=== PATIENT | male | born 1985 | race Caucasian/White ===

== ENCOUNTER → 2017-05-14 | Outpatient (REF) | payer OTHER ==
[~2017-05-14] MED LIST: /DULO30CA OR; EXCETAB OR; IBUP600T OR; TRAM50TA2 OR; ZOMI5TAB OR
== END ==
LOC: M SFHCLERA 12:20
PROVIDERS: ATTEND Nurse Practitioner Family
DX: R50.9 Fever, unspecified (principal)

== ENCOUNTER 2018-02-03 07:14 | Emergency (ER) | payer OTHER | END 2018-02-03 08:44 | disposition home or self-care (01) | LOC: M ED 07:14 | DX: S29.012A Strain of muscle and tendon of back wall of thorax, initial encounter (principal); X50.0XXA Overexertion from strenuous movement or load, initial encounter; Y92.89 Other specified places as the place of occurrence of the external cause; Z88.6 Allergy status to analgesic agent | CPT/HCPCS: 99283 ==

== ENCOUNTER → 2019-02-28 | Outpatient (REF) | payer OTHER ==
[~2019-02-28] MED LIST changes: -/DULO30CA OR; +ACET-683 PO; +CYCL10TA PO; +CYMB1CAP5 OR; +NAPR-837 PO
[2019-02-28 13:07] LABS: SEMEN APPEARANCE OPAQUE (OPAQUE); SEMEN VISCOSITY LIQUID (LIQUID); WBC CONCENTRATION <=1 M/ml (<=1 M/ml)
== END ==
LOC: M LAB REF 10:58
PROVIDERS: ATTEND Family Medicine
DX: Z98.52 Vasectomy status (principal)

== ENCOUNTER → 2020-05-31 | Outpatient (CLI) | payer OTHER ==
[~2020-05-31] MED LIST changes: +CYCL-707 PO; -CYCL10TA PO; +EXCETAB33 PO; +GABA-1171 PO; +HYDR-3713 PO; +MELO15TA28 PO; +QUET5TAB PO; +THERTAB52 PO; +VITA500C24 PO
== END ==
LOC: M LABSMTC 10:43
PROVIDERS: ATTEND Anesthesiology
DX: Z11.59 Encounter for screening for other viral diseases (principal)

== ENCOUNTER → 2020-06-05 | Day surgery (SDC) | payer OTHER ==
[~2020-06-05] VITALS: Ht 177.8 cm; Wt 113.4 kg
[~2020-06-05] MED LIST changes: +BUPIVACAINE HCL 0.5% 30 ML VIAL As Ordered ONE; +KETAMINE HCL 200 MG/20 ML VIAL As Ordered ONE; +KETOROLAC 60MG 2ML VIAL As Ordered ONE; +LIDOCAINE 1% MDV 20ML VIAL As Ordered ONE; +LIDOCAINE 2% 100MG/5ML SDV (FOR ANES.) As Ordered ONE; +LR 1,000 ML IV ONE; +MIDAZOLAM INJ 2MG/2ML VIAL (J2250 PER 1MG) As Ordered ONE; +ONDANSETRON 4MG/2ML VIAL As Ordered ONE; +ceFAZolin SOD 2 GM in IV 1 EA IV ONE; +dexameTHASONE 4 MG/ML 1ML VIAL (J1100 PER 1MG) As Ordered ONE; +fentaNYL 100 MCG/2 ML INJECTION (J3010) As Ordered ONE; +propofoL 200 MG/20 ML VIAL As Ordered ONE
--- NOTE | 2020-06-05 10:05 | RO ---
OPERATIVE NOTE DATE OF OPERATION: 06/05/2020 PREOPERATIVE DIAGNOSIS: Bilateral plantar fasciitis. POSTOPERATIVE DIAGNOSIS: Bilateral plantar fasciitis. PROCEDURE: Bilateral endoscopic plantar fascia release. SURGEON: Dusty Mai DPM. SENIOR MEDICAL WRITER: None. ANESTHESIA: Monitored anesthesia care. Preoperative injection of 30 mL of 1:1 mix of 1% Lidocaine plain and 0.5% Marcaine plain. ESTIMATED BLOOD LOSS: Minimal. MATERIALS: 4-0 nylon. INJECTABLES: 1 mL of Decadron 4 mg/mL per side. COMPLICATIONS: None. CONDITION: Stable. INDICATIONS FOR PROCEDURE: Robin Esposito is a 35-year-old male with chronic plantar fasciitis. He has undergone numerous conservative treatments without resolution of his pain. He presented today for surgical correction. The patient, side, and site were identified and marked in the preoperative area. Consent was reviewed and obtained. The risks, complications, and alternatives to the procedure were explained to the patient in detail and all questions were answered. DESCRIPTION OF PROCEDURE: The patient was brought to the operating room and placed on the operating room table in supine position. Monitored anesthesia care was delivered by the anesthesia team. A preop injection of 30 mL of 1:1 mixture of 1% Lidocaine plain and 0.5% Marcaine plain were injected to the right and left foot. Tourniquet was applied to both ankles. The feet were prepped and draped in the normal sterile fashion. The tourniquet was inflated to 250 mmHg. Medial stab incision was made at the medial heel near the plantar fascia insertion. Hemostat used to find the inferior margin of the plantar fascia. The cannula and trocar were inserted through the medial portal and an exit portal was made at the lateral heel. The trocar was removed. The camera was inserted through the lateral portal through the cannula. The plantar fascia was observed. Using the straight blade, the plantar fascia was released along the medial two-thirds leaving the lateral one-third intact. Camera was removed. The site was irrigated with normal saline. The cannula was removed, and the incision was repaired using 4-0 nylon. Sterile dressings were applied. The tourniquet was deflated. The patient was brought the PACU with vital signs stable and neurovascular status intact. Weightbearing as tolerated. Follow-up in the office next week.
[2020-06-05 10:15] VITALS: BP 125/82
== END | disposition home or self-care (01) ==
LOC: M SDC 07:13
PROVIDERS: ATTEND Podiatrist Foot & Ankle Surgery
DX: M72.2 Plantar fascial fibromatosis (principal); F43.10 Post-traumatic stress disorder, unspecified; G43.909 Migraine, unspecified, not intractable, without status migrainosus; K57.32 Diverticulitis of large intestine without perforation or abscess without bleeding; K21.9 Gastro-esophageal reflux disease without esophagitis; M19.90 Unspecified osteoarthritis, unspecified site; M54.9 Dorsalgia, unspecified; Z87.81 Personal history of (healed) traumatic fracture
CPT/HCPCS: 29893; J0690; J1100; J1885; J2250; J2405; J3010

== ENCOUNTER → 2020-08-23 | Outpatient (CLI) | payer OTHER ==
[~2020-08-23] MED LIST changes: +ACET1TAB55 PO; -BUPIVACAINE HCL 0.5% 30 ML VIAL As Ordered ONE; +IBUP80TA PO; -KETAMINE HCL 200 MG/20 ML VIAL As Ordered ONE; -KETOROLAC 60MG 2ML VIAL As Ordered ONE; -LIDOCAINE 1% MDV 20ML VIAL As Ordered ONE; -LIDOCAINE 2% 100MG/5ML SDV (FOR ANES.) As Ordered ONE; -LR 1,000 ML IV ONE; -MIDAZOLAM INJ 2MG/2ML VIAL (J2250 PER 1MG) As Ordered ONE; +NAPR-849 PO; -ONDANSETRON 4MG/2ML VIAL As Ordered ONE; +QUET50TA3 PO; -QUET5TAB PO; -ceFAZolin SOD 2 GM in IV 1 EA IV ONE; -dexameTHASONE 4 MG/ML 1ML VIAL (J1100 PER 1MG) As Ordered ONE; -fentaNYL 100 MCG/2 ML INJECTION (J3010) As Ordered ONE; -propofoL 200 MG/20 ML VIAL As Ordered ONE
== END ==
LOC: M LABSMTC 10:57
PROVIDERS: ATTEND Anesthesiology
DX: Z01.812 Encounter for preprocedural laboratory examination (principal); Z20.822 Contact with and (suspected) exposure to COVID-19

== ENCOUNTER 2020-08-28 06:11 | Day surgery (SDC) | payer OTHER ==
[~2020-08-28] VITALS: Ht 177.8 cm; Wt 113.4 kg
[2020-08-28] MEDS ORDERED: LIDOCAINE 1% SDV 30ML VIAL As Ordered ONE (06:42)
[2020-08-28] MEDS ORDERED: BUPIVACAINE HCL 0.5% 30 ML VIAL As Ordered ONE (06:42)
[2020-08-28] MEDS ORDERED: dexameTHASONE 4 MG/ML 1ML VIAL (J1100 PER 1MG) As Ordered ONE ×3 (06:43→08:14)
[2020-08-28] MEDS ORDERED: LR 1,000 ML IV ONE (07:00)
[2020-08-28] MEDS ORDERED: ONDANSETRON 4MG/2ML VIAL As Ordered ONE (07:41)
[2020-08-28] MEDS ORDERED: fentaNYL 100 MCG/2 ML INJECTION (J3010) As Ordered ONE (07:41)
[2020-08-28] MEDS ORDERED: MIDAZOLAM INJ 2MG/2ML VIAL (J2250 PER 1MG) As Ordered ONE (07:41)
[2020-08-28] MEDS ORDERED: propofoL 200 MG/20 ML VIAL As Ordered ONE (07:41)
[2020-08-28] MEDS ORDERED: LIDOCAINE 2% 100MG/5ML SDV (FOR ANES.) As Ordered ONE (07:41)
[2020-08-28] MEDS ORDERED: METOCLOPRAMIDE INJ 10MG/2ML VIAL (J2765 PER 1) As Ordered ONE (07:41)
[2020-08-28] MEDS ORDERED: ceFAZolin 2 GM/D5W 50 ML IV BAG (J0690 PER 500MG) As Ordered ONE (07:42)
[2020-08-28] MEDS ORDERED: ACETAMINOPHEN 1000MG 100ML IV BTL (OFIRMEV) (J0131 PER 10MG) As Ordered ONE (07:45)
[2020-08-28] MEDS ORDERED: KETOROLAC 60MG 2ML VIAL As Ordered ONE (07:46)
[2020-08-28] MEDS ORDERED: OXYC10TA3 PO (08:51)
[2020-08-28] MEDS ORDERED: ONDANSETRON 4MG/2ML VIAL IV PRN (09:15)
[2020-08-28] MEDS ORDERED: PERCOCET 5MG/325MG TAB PO PRN (09:15)
[2020-08-28] MEDS ORDERED: LR 1,000 ML IV SCH (09:15)
[2020-08-28 09:50] VITALS: BP 134/83
--- NOTE | 2020-08-28 15:19 | RO ---
OPERATIVE NOTE DATE OF OPERATION: 08/28/2020 PREOPERATIVE DIAGNOSIS: Chronic plantar fasciitis bilaterally. POSTOPERATIVE DIAGNOSIS: Chronic plantar fasciitis bilaterally. PROCEDURE: Open plantar fascial release bilateral. SURGEON: Dusty Mai DPM ANESTHESIA: Monitored anesthesia care, preop injection of 30 mL of 1:1 mixture of 1% Lidocaine plain and 0.5% Marcaine plain. ESTIMATED BLOOD LOSS: Minimal. MATERIALS: 4-0 Vicryl and 4-0 nylon. INJECTABLES: 2 mL of Decadron 4 mg per mL and an additional 9 mL of 1% lidocaine plain. COMPLICATIONS: None. CONDITION: Stable. INDICATIONS: Robin Esposito is a 35-year-old male with chronic heel pain. He has undergone previous endoscopic plantar fascia release, but has persisting pain in his heel. The decision was made to bring him to the operating room for open plantar fascia release. The patient's site and side were identified and marked in preoperative area. Consent was reviewed and obtained. Risks, complications, and alternatives to the procedure were explained to the patient in detail and all questions were answered. DESCRIPTION OF PROCEDURE: The patient was brought to the operating room and placed on the operating table in supine position. Monitored anesthesia care was delivered by the anesthesia team. Preop injection of 30 mL of 1:1 mixture of 1% Lidocaine plain and 0.5% Marcaine plain was injected in both feet. Both feet were prepped and draped in normal sterile fashion. Tourniquets were applied to the ankles and inflated to 225 mmHg. Medial incisions were drawn along the heel and carried through with a #15 blade. Using tenotomy scissors, overlying soft tissue was freed until the plantar fascia was identified. There was noted to be some scar tissue from previous release and some adhesions. All adhesions along the plantar fascia were released. The scar tissue was excised using tenotomy scissors. The fasciotomy was performed, removing a small wedge of the fascia using the tenotomy scissors. On the left side, there was a palpable bone spur at the fascia insertion and this was smoothed with a rasp. On the right side, there was no palpable spurring. Adhesions along the abductor muscle belly were released using tenotomy scissors. The calcaneal nerve was transected with the 15-blade on both feet. Tension was applied to the toes to activate windless mechanism and any remaining adhesions were loosened using the tenotomy scissors until there was no tightness along the fascia. Following this, the site was irrigated with normal saline. Closure was performed using 4-0 Vicryl and 4-0 nylon. Then, 1 mL of Decadron was injected to both feet. An additional 7 mL was used along the left foot during the procedure of 1% lidocaine plain. Tourniquets were deflated. Sterile dressings were applied. The patient was brought to the PACU with vital signs stable and neurovascular status intact. He will be weight bearing as tolerated with crutches. He will follow up in the office in two days.
== END 2020-08-28 09:53 | disposition home or self-care (01) ==
LOC: M SDC 06:11
PROVIDERS: ATTEND Podiatrist Foot & Ankle Surgery
DX: M72.2 Plantar fascial fibromatosis (principal); K57.92 Diverticulitis of intestine, part unspecified, without perforation or abscess without bleeding; K21.9 Gastro-esophageal reflux disease without esophagitis; G43.909 Migraine, unspecified, not intractable, without status migrainosus; F43.10 Post-traumatic stress disorder, unspecified; Z79.899 Other long term (current) drug therapy
CPT/HCPCS: 28060; J0131; J0690; J1100; J1885; J2250; J2405; J2765; J3010

== ENCOUNTER → 2021-02-22 | Outpatient (CLI) | payer OTHER ==
[~2021-02-22] MED LIST changes: +OXYC10TA3 PO; -QUET50TA3 PO; +QUET50TA4 PO
--- NOTE | 2021-02-22 10:01 | REP ---
INDICATION: OMAYRA FEET/HEEL PAIN. COMPARISON: None. TECHNIQUE: Multiple sequences are obtained of the right foot in the axial, coronal and sagittal planes. FINDINGS: The Achilles, anterior tibial, posterior tibial, flexor hallucis longus, flexor digitorum longus and peroneal tendons are all intact. There is mild fluid surrounding the distal posterior tibial tendon which may represent mild tenosynovitis. The flexor and extensor tendons of the foot are intact with no significant tenosynovitis. The anterior and posterior talofibular, calcaneofibular and deltoid ligaments appear intact. Plantar tendon appears intact. There is no plantar fasciitis. Sinus tarsi appears unremarkable. No ganglion cyst is seen. There is no evidence of Brown neuroma. There is mild fluid surrounding the talus. The cartilaginous surfaces are smooth. No osteochondral defect is seen at the tibiotalar joint. There is no bone marrow edema or occult fracture. There is mild subcortical cystic change in the inferior aspect of the lateral cuneiform. IMPRESSION: Mild fluid surrounding the distal posterior tibial tendon may represent mild tenosynovitis. Plantar tendon is intact and there is no evidence of plantar fasciitis. Mild fluid surrounding the talus. Mild subcortical cystic change in the inferior aspect of the lateral cuneiform. <Electronically signed by Nicholas Odell > 02/22/21 [id number]
--- NOTE | 2021-02-22 11:58 | REP ---
INDICATION: BILATERAL FOOT PAIN. COMPARISON: None. TECHNIQUE: Multiple sequences are obtained in the axial, coronal and sagittal planes. FINDINGS: The Achilles, anterior tibial, posterior tibial, flexor hallucis longus, flexor digitorum longus and peroneal tendons are all intact without significant tenosynovitis. Flexor and extensor tendons of the foot are intact with no tenosynovitis. The anterior and posterior talofibular, calcaneofibular and deltoid ligaments appear intact. Plantar tendon appears intact. There is mild edema surrounding the plantar tendon and in the plantar soft tissues, suggesting mild tendinitis and plantar fasciitis. Sinus tarsi appears unremarkable. No ganglion cyst is seen. There is no evidence of Brown neuroma. There is normal amount of joint fluid surrounding the talus. The cartilaginous surfaces are smooth. No osteochondral defect is seen at the tibiotalar joint. There is no bone marrow edema or occult fracture. IMPRESSION: There are findings compatible with mild plantar tendinitis and fasciitis. <Electronically signed by Nicholas Odell > 02/22/21 [id number]
== END ==
LOC: M RAD 08:38
PROVIDERS: ATTEND Podiatrist Foot & Ankle Surgery
DX: M25.579 Pain in unspecified ankle and joints of unspecified foot (principal)